=== PATIENT | male | born 1970 | race Caucasian/White ===

== ENCOUNTER → 2018-12-05 08:56 | Outpatient (CLI) | payer OTHER, SELFPAY ==
--- NOTE | 2018-12-05 | DI.US.S_ITS ---
PROCEDURE: US THYROID INDICATIONS: THYROID NODULE TECHNIQUE: Real-time scanning was performed of the thyroid gland, with image documentation. COMPARISON: None. FINDINGS: Right: Thyroid lobe measures 6.3 x 2.4 x 2.6 cm, and is homogeneous in echotexture. Left: Thyroid lobe measures 6.3 x 2.3 x 2.4 cm, and is homogenous in echotexture. Isthmus: 4.0 mm thick. Nodule number: 1 Location: Right inferior Size: 0.7 x 0.5 x 0.6 cm. Composition: Predominately cystic Echogenicity: Hypoechoic Shape: wider than tall. Margins: Smooth Echogenic foci: None Total points: 2 ACR TI-RADS category: Not suspicious Nodule number: 2 Location: Right midpole Size: 0.8 x 0.6 x 0.8 cm Composition: Predominately solid Echogenicity: Hypoechoic Shape: wider than tall. Margins: Smooth Echogenic foci: Internal punctate echogenic foci Total points: 7 ACR TI-RADS category: Highly suspicious Nodule number: 3 Location: Left inferior Size: 1.7 x 1.1 x 1.1 cm. Composition: Predominately solid Echogenicity: Hypoechoic Shape: wider than tall. Margins: Irregular Echogenic foci: Internal punctate echogenic foci. Total points: 7 ACR TI-RADS category: Highly suspicious IMPRESSION: Bilateral thyroid nodules as above. Recommend sonographically directed fine needle aspiration involving the #3 left thyroid nodule and continued sonographic surveillance of the additional nodules as detailed below. ACR TI-RADS definitions and recommendations: TI-RADS 1 (benign): 0 points. FNA not needed. TI-RADS 2 (not suspicious): 2 points. FNA not needed. TI-RADS 3 (mildly suspicious): 3 points. * FNA if 2.5 cm or larger, follow up if 1.5 cm or larger (at 1, 3, and 5 years). TI-RADS 4 (moderately suspicious): 4-6 points. * FNA if 1.5 cm or larger, follow up if 1 cm or larger (at 1, 2, 3, and 5 years). TI-RADS 5 (highly suspicious): 7 points or more. * FNA if 1 cm or larger, follow up if 0.5 cm or larger (every year for 5 years). Dictated by: Parker FOWLER Interpreted: Noe Araujo MD on 12/05/2018 at 15:27 Approved by: Noe Araujo M.D. on 12/05/2018 at 17:39
== END ==
PROVIDERS: PCP Physician Assistant Medical; Visit Provider Physician Assistant Medical
DX: E04.2 Nontoxic multinodular goiter (principal)
CPT/HCPCS: 76536

== ENCOUNTER → 2018-12-12 12:46 | Outpatient (CLI) | payer OTHER, SELFPAY ==
--- NOTE | 2018-12-12 | DI.US.S_ITS ---
PROCEDURE: US FINE NEEDLE ASPIRATION INDICATIONS: THYROID NODULE TECHNIQUE: The indications, alternatives, benefits, risks, and complications of the procedure were explained to the patient. Written informed consent was obtained and placed in the chart. The thyroid region was examined sonographically and a site was chosen for ultrasound guided percutaneous sampling. The skin was prepared and draped in the usual fashion, and anesthetized with 1% lidocaine infiltrated from the skin down to the thyroid gland. Multiple passes were then performed, with contents emptied into an appropriate pathology specimen container. A bandage was applied to the area of access at completion of the study. COMPARISON: None. FINDINGS: Location(s) of lesion(s) sampled: Lower pole left thyroid lobe [place]: 25 gauge hypodermic needles. Number of passes: 6 Medications: 1% lidocaine for local anaesthesia. Complications: None. IMPRESSION: Successful ultrasound-guided thyroid nodule fine needle aspiration, with cytology results pending. Please see chart below for management recommendations based on cytology results. [place] [facility] ReportingRecommendationsNon-diagnostic* Repeat US-guided FNA, with on-site cytology evaluation if possible. * Repeated non-diagnostic nodules without high suspicion US features: close observation vs surgical consult. * Consider surgery if nodule has high suspicion US features, grows >20% in 2 dimensions on followup, or patient has clinical risk factors for malignancy. Benign* If nodule has high suspicion US features: repeat US and FNA within 12 months. * If nodule has low to intermediate suspicion US features: repeat US at 12-24 months. If nodule grows (20% increase in at least 2 dimensions, with minimal increase of 2 mm or >50% change in volume), or development of new suspicious US features, then repeat FNA or continue followup. * If nodule has very low suspicion US features: followup US at >24 months. Atypia of undetermined significance, follicular lesion of undetermined significanceRepeat FNA, molecular testing, followup US, or surgical consult.Follicular neoplasm, suspicious for follicular neoplasmSurgical consult; also consider molecular testing. Suspicious for malignancySurgical consult.MalignantSurgical consult. Dictated by: Noe Araujo M.D. on 12/12/2018 at 14:50 Approved by: Noe Araujo M.D. on 12/12/2018 at 14:50
--- NOTE | 2018-12-12 | PATH_ITS ---
Note [facility] Accession Number: [id number] TESTS RESULT FLAG UNITS REF RANGE LAB Clinician Provided Cytology Information No. of containers..01 ThinPrep Vial No. of containers..10 Previously Prepared Cytology Slide LEFT THYROID LOBE DIAGNOSIS: 02 LEFT THYROID LOBE NEGATIVE FOR MALIGNANT CELLS. B[place]ES[place] CATEGORY II - BENIGN. SPECIMEN CONSISTS OF BENIGN FOLLICULAR CELLS, HEMOSIDERIN-LADEN MACROPHAGES, COLLOID, AND BLOOD. THIS PATTERN IS CONSISTENT WITH A COLLOID NODULE. Pathologist ICD10: 02 E04.1 01 Pt had 3 thyroid nodules found on U/S, one of which Is recommended to have bx. Pt is asymptomatic. 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 It is 4.0 cm and he is asymptomatic. Pt also with elevated WBG Ct, also has lymphadenopathy, seeing pulm. No active illnesses. 02 Raulito Jenkins MD, PhD, Pathologist NPI- [id number] Alberto Fountain, Head Of [employer] Strategic Partnerships ([facility]) 01 30 CC, PALE YELLOW, CLEAR RECEIVED: 5 ALCOHOL FIXED AND 5 QUICK STAINED SLIDES WITH 1 RNA VIAL FOR FURTHER TESTING. /NIKIU FLAG LEGEND: L-Low Normal,H-High Normal,LL-Alert Low,HH-Alert High <-Panic Low,>-Panic High,A-Abnormal,AA-Critical Abnormal Performed at: 01 =Z [facility] [address] [place] [address] [address], [place] [address] Yoan Pantoja MD, 02 [facility] [address] [place] [address] Cynthia Mejia MD, Performed at: 01 [facility] [address] [place] [address], [place], [place] [id number] MD Yoan Pantoja MD Phone: [phone]
== END ==
PROVIDERS: PCP Physician Assistant Medical; Visit Provider Physician Assistant Medical
DX: E04.2 Nontoxic multinodular goiter (principal); I71.2 Thoracic aortic aneurysm, without rupture; R59.0 Localized enlarged lymph nodes
CPT/HCPCS: 10005

== ENCOUNTER → 2021-07-17 09:13 | Outpatient (CLI) | payer OTHER, SELFPAY ==
--- NOTE | 2021-07-17 | DI.US.S_ITS ---
PROCEDURE: US THYROID INDICATIONS: THYROID NODULE TECHNIQUE: Real-time scanning was performed of the thyroid gland, with image documentation. COMPARISON: [facility], US, US THYROID, 12/05/2018, 10:08. FINDINGS: Right: Thyroid lobe measures 6.2 x 2.1 x 2.4 cm, and is homogeneous in echotexture. Left: Thyroid lobe measures 6.2 x 2.4 x 2.4 cm, and is homogenous in echotexture. Nodule number: 1 Location: Left inferior thyroid Size: 1.3 x 1.0 x 1.0 cm. Composition: Solid Echogenicity: Hypoechoic Shape: wider than tall. Margins: Smooth Echogenic foci: Macrocalcifications Total points: 5 ACR TI-RADS category: 4 Recommendation: Follow-up imaging at 1, 2, 3, and 5 years. Nodule number: 2 Location: Left inferior thyroid Size: 0.6 x 0.7 x 0.5 cm. Composition: Solid Echogenicity: Hypoechoic Shape: wider than tall. Margins: Smooth Echogenic foci: None Total points: 4 ACR TI-RADS category: 4 Recommendation: Follow-up imaging at 1, 2, 3, and 5 years. Nodule number: 3 Location: Right inferomedial thyroid Size: 0.6 x 0.5 x 0.5 cm. Composition: Solid Echogenicity: Hypoechoic Shape: wider than tall. Margins: Irregular Echogenic foci: none Total points: 6 ACR TI-RADS category: 4 Recommendation: Follow-up imaging at 1, 2, 3, and 5 years. Nodule number: 4 Location: Right inferior thyroid Size: 0.7 x 0.4 x 0.5 cm. Composition: Solid Echogenicity: Hypoechoic Shape: wider than tall. Margins: Smooth Echogenic foci: None Total points: 4 ACR TI-RADS category: 4 Recommendation: Follow-up imaging at 1, 2, 3, and 5 years. IMPRESSION: 1. Multiple TIRADS4 nodules as described above. Follow-up is recommended as above. Dictated by: Humza Cerna M.D. on 07/17/2021 at 15:55 Approved by: Humza Cerna M.D. on 07/17/2021 at 15:59
== END ==
PROVIDERS: PCP Physician Assistant Medical; Referring Provider Physician Assistant Medical; Visit Provider Physician Assistant Medical
DX: E04.2 Nontoxic multinodular goiter (principal)
CPT/HCPCS: 76536

== ENCOUNTER → 2021-07-21 10:38 | Outpatient (CLI) | payer OTHER, SELFPAY ==
--- NOTE | 2021-07-21 10:40 | DI.CT.S_ITS ---
PROCEDURE: CT CHEST WO CON INDICATIONS: SOLITARY PULMONARY NODULE TECHNIQUE: Noncontrast 5 mm thick sections acquired from the pulmonary apices to the posterior costophrenic angles. 1 mm lung window, 5 mm thick coronal and sagittal and 7 mm axial MIP reformats were then acquired. For radiation dose reduction, the following was used: automated exposure control, adjustment of mA and/or kV according to patient size. COMPARISON: [facility], , THYROID, 07/17/2021, 10:16. [facility], , US THYROID, 12/05/2018, 10:08. Outside Facility, , CT THORAX W/O CONTRAST, 11/25/2018, 10:47. FINDINGS: Image quality: Excellent. Lungs and pleura: There are multiple small lung nodules bilaterally. Some nodules are calcified compatible with remote granulomas. Noncalcified nodules are seen. 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 Nodule 2: 3 mm; left upper lobe, lateral; series 3, image 91. No acute air space opacities. No pleural effusions or pneumothorax. Central and peripheral airways are patent and normal in caliber. Mediastinum: Heart size is normal. No pericardial effusion. A 1.2 cm prevascular lymph node appears stable in size, likely reactive. Calcified lymph nodes are seen in mediastinum and right hilum. Mild ectasias of the ascending thoracic aorta measuring 3.8 cm. The central pulmonary arteries are normal in size. Esophagus is normal in caliber. Small hiatal hernia. Bones and chest wall: There is a 0.6 mm nodule in the left thyroid lobe. No suspicious bony lesions. No vertebral body compression fractures. No axillary or supraclavicular adenopathy by size criteria. Abdomen: There are multiple calcified nodules in spleen, compatible with remote granulomatous disease. Calcified lymph nodes are seen in periportal area, most likely related to remote granulomatous disease. IMPRESSION: 1. Pulmonary nodules are stable. Please see enclosed follow-up recommendation. 2. A borderline enlarged prevascular lymph node appears unchanged. 3. Remote granulomatous disease in mediastinum, right hilum, and spleen. 4. A 0.6 cm nodule in the left thyroid lobe. Thyroid ultrasound suggested for follow-up Fleischner Society criteria for SOLID lung nodule followup. Nodule size (mm)Low-risk patientHigh-risk patient?4No follow-up neededFollow-up at 12 mo; if no change, no further follow-up>2-2Kfpqsu-md CT at 12 mo; if no change, no further follow-up needed.Initial follow-up CT at 6-12 mo, then 18-24 mo if no change. >6-8Initial follow-up CT at 6-12 mo, then 18-24 mo if no change. Initial follow-up CT at 3-6 mo, then 9-12 mo and 24 mo if no change. >8Follow-up CT at 3, 9, 24 mo. Or PET and/or biopsy.Same as for low-risk pts. Dictated by: Jagruti Cochran M.D. on 07/28/2021 at 14:00 Approved by: Jagruti Cochran M.D. on 07/28/2021 at 14:12
== END ==
PROVIDERS: PCP Physician Assistant Medical; Referring Provider Physician Assistant Medical; Visit Provider Physician Assistant Medical
DX: R91.8 Other nonspecific abnormal finding of lung field (principal); K44.9 Diaphragmatic hernia without obstruction or gangrene; E04.1 Nontoxic single thyroid nodule
CPT/HCPCS: 71250

== ENCOUNTER → 2022-08-22 06:47 | Outpatient (CLI) | payer OTHER, SELFPAY ==
--- NOTE | 2022-08-22 | DI.US.S_ITS ---
PROCEDURE: US SCROTUM INDICATIONS: TESTICULAR PAIN TECHNIQUE: Real-time scanning was performed of the scrotum and testicles, with image documentation. Color and pulse Doppler interrogation was performed of both testicles. COMPARISON: None. FINDINGS: Right: Testicle is normal in size at 5.2 x 2.4 cm, and homogenous in echotexture. Epididymis is normal in overall size and morphology. No hydrocele or varicoceles. Overlying scrotal skin is normal in thickness. Left: Testicle is normal in size at 4.1 x 2.8 x 3.1 cm, and homogeneous in echotexture. Epididymis is normal in overall size and morphology. There is a moderate-sized hydrocele. No varicocele. Overlying scrotal skin is normal in thickness. Doppler: Color and pulse Doppler demonstrate normal and symmetric arterial flow in both testicles. IMPRESSION: 1. Moderate-sized left hydrocele. 2. No evidence of epididymitis. 3. Normal testicles. Dictated by: Asad Sharma M.D. on 08/22/2022 at 8:35 Approved by: Asad Sharma M.D. on 08/22/2022 at 8:37
== END ==
PROVIDERS: PCP Physician Assistant Medical; Referring Provider Physician Assistant Medical; Visit Provider Physician Assistant Medical
DX: N50.812 Left testicular pain (principal); N43.3 Hydrocele, unspecified
CPT/HCPCS: 76870

== ENCOUNTER → 2022-08-27 06:53 | Outpatient (CLI) | payer OTHER, SELFPAY ==
--- NOTE | 2022-08-27 06:55 | DI.US.S_ITS ---
PROCEDURE: US THYROID INDICATIONS: THYROID NODULE TECHNIQUE: Real-time scanning was performed of the thyroid gland, with image documentation. COMPARISON: [facility], US, US THYROID, 07/17/2021, 10:16. [facility], US, US THYROID, 12/05/2018, 10:08. FINDINGS: Previously described thyroid nodules are all either stable or decreased in size when compared with the previous examination. There are no microcalcifications in any of the nodules. IMPRESSION: Previously described thyroid nodules are all either decreased or stable in size. None of the nodules meet criteria for FNA recommendation. Follow-up in 12 months recommended. Dictated by: Hudson Santiago M.D. on 08/27/2022 at 15:35 Approved by: Hudson Santiago M.D. on 08/27/2022 at 15:37
== END ==
PROVIDERS: PCP Physician Assistant Medical; Referring Provider Physician Assistant Medical; Visit Provider Physician Assistant Medical
DX: E04.2 Nontoxic multinodular goiter (principal)
CPT/HCPCS: 76536

== ENCOUNTER → 2023-08-20 08:04 | Outpatient (CLI) | payer OTHER, SELFPAY ==
--- NOTE | 2023-08-20 | DI.US.S_ITS ---
PROCEDURE: US ABD AORTA ANEURYSM SCREEN INDICATIONS: Aneurysm of the ascending aorta, without rupture TECHNIQUE: Real time scanning was performed of the aorta and iliac arteries, with image documentation. COMPARISON: None. FINDINGS: Aorta: Proximal aortic diameter measures 2.5 cm. Mid-aorta measures 1.9 cm. Distal aortic diameter is 1.5 cm. Iliac arteries: Right common iliac artery measures 1.0 cm. Left common iliac artery measures 1.1 cm. IMPRESSION: Minimal ectasia of the abdominal aorta, 5 year follow-up ultrasound is recommended. Dictated by: Ezekiel Leo M.D. on 08/20/2023 at 9:28 Approved by: Ezekiel Leo M.D. on 08/20/2023 at 9:29
== END ==
PROVIDERS: PCP Physician Assistant Medical; Referring Provider Internal Medicine Cardiovascular Disease; Visit Provider Internal Medicine Cardiovascular Disease
DX: I71.21 Aneurysm of the ascending aorta, without rupture (principal); I10 Essential (primary) hypertension
CPT/HCPCS: 76706

== ENCOUNTER → 2023-12-23 15:01 | Outpatient (CLI) | payer OTHER, SELFPAY ==
--- NOTE | 2023-12-23 15:03 | DI.US.S_ITS ---
PROCEDURE: US THYROID INDICATIONS: FOLLOW-UP TECHNIQUE: Real-time scanning was performed of the thyroid gland, with image documentation. COMPARISON: [facility], US, US THYROID, 12/05/2018, 10:08. [facility], US, US FINE NEEDLE ASPIRATION, 12/12/2018, 13:03. [facility], US, US THYROID, 08/27/2022, 7:13. FINDINGS: Thyroid: Right lobe measures 6.4 x 2.3 x 2.3 cm. Left lobe measures 6.5 x 2.5 x 2.3 cm. Isthmus is 0.6 cm thick. Echotexture is homogeneous. Nodule number: 1 Location: Left inferior Size: 1.7 x 1.1 x 1 cm. (Previously measured 1.7 x 1.1 x 1.1 cm in 2019). Composition: Solid Echogenicity: Hypoechoic Shape: wider than tall. Margins: Smooth Echogenic foci: None Total points: 4 ACR TI-RADS category: TR 4, moderately suspicious. Prior FNA in 2019. IMPRESSION: Left inferior thyroid nodule measuring 1.7 cm. TR 4, moderately suspicious. Not significantly changed in size compared to 2019. Prior FNA with reported benign pathology. No further follow-up is required. ACR TI-RADS definitions and recommendations: TI-RADS 1 (benign): 0 points. FNA not needed. TI-RADS 2 (not suspicious): 2 points. FNA not needed. TI-RADS 3 (mildly suspicious): 3 points. * FNA if 2.5 cm or larger, follow up if 1.5 cm or larger (at 1, 3, and 5 years). TI-RADS 4 (moderately suspicious): 4-6 points. * FNA if 1.5 cm or larger, follow up if 1 cm or larger (at 1, 2, 3, and 5 years). TI-RADS 5 (highly suspicious): 7 points or more. * FNA if 1 cm or larger, follow up if 0.5 cm or larger (every year for 5 years). Dictated by: Glen Friend M.D. on 12/23/2023 at 17:09 Approved by: Glen Friend M.D. on 12/23/2023 at 17:14
== END ==
PROVIDERS: PCP Physician Assistant Medical; Referring Provider Physician Assistant Medical; Visit Provider Physician Assistant Medical
DX: E04.1 Nontoxic single thyroid nodule (principal)
CPT/HCPCS: 76536